=== PATIENT | male | born 1955 | race Caucasian/White ===

== ENCOUNTER 2023-04-21 10:33 | Emergency (ER) | payer MEDICARE, OTHER ==
[2023-04-21] VITALS (16 sets, daily range): BP systolic 114–151; BP diastolic 70–86
[~2023-04-21] VITALS: Ht 167.6 cm; Wt 66.0 kg
[2023-04-21 11:21] LABS: BASO% 0.2 % (0-3); HEMATOCRIT 38.4 % (39.0-50.0); HEMOGLOBIN 13.7 g/dl (14.0-18.0); IMMATURE GRANULOCYTES 0.3 % (0.0-5.0); LYMPH% 8.1 % (15-41); MEAN CELL VOLUME 83.7 fL CALC (80.0-100.0); MEAN CORPUSCULAR HGB 29.8 pG CALC (26.0-32.0); MEAN CORPUSCULAR HGB CONC 35.7 g/dL CAL (32.0-36.0); MONO% 5.2 % (2-13); NEUT# 9.92 thou/uL (1.82-7.42); NEUT% 86.2 % (42-76); RED BLOOD COUNT 4.59 mill/uL (4.70-6.10); RED CELL DISTRI WIDTH 11.5 % (11.5-15.5)
[2023-04-21 11:42] LABS: ALBUMIN 4.1 g/dL (3.2-5.0); ALKALINE PHOSPHATASE 62 u/l (38-126); ANION GAP 25 (6-22 (CALC)); BILIRUBIN, TOTAL 0.7 mg/dL (0.2-1.3); CARBON DIOXIDE 10 mmol/l (22-30); CHLORIDE 108 mmol/l (95-108); SGOT/AST 38 u/l (19-48); SODIUM 137 mmol/l (137-146)
[2023-04-21 11:45] LABS: BUN 113 mg/dL (8-23); BUN/CREATININE RATIO 9 (12-20 (CALC)); CREATININE 12.8 mg/dL (0.7-1.3); GFR FOR AFR.AMER. 5 ML/MIN (>=60 (CALC)); GFR OTHER RACES 4 ML/MIN (>=60 (CALC)); POTASSIUM 5.7 mmol/l (3.5-5.1)
[2023-04-21 13:26] LABS: BILIRUBIN, TOTAL 0.6 mg/dL (0.2-1.3); TOTAL PROTEIN 6.7 g/dL (6.3-8.2)
[2023-04-21 13:37] LABS: CREATININE 12.3 mg/dL (0.7-1.3); POTASSIUM 6.3 mmol/l (3.5-5.1)
[2023-04-21 15:19] LABS: URINE BILIRUBIN - DIPSTICK Negative (NEGATIVE); URINE BLOOD DIPSTICK Small (NEGATIVE); URINE COLOR Yellow; URINE GLUCOSE - DIPSTICK Negative (NEGATIVE); URINE KETONE Negative (NEGATIVE); URINE LEUK ESTERASE Negative (NEGATIVE); URINE NITRITE - DIPSTICK Negative (Negative); URINE PROTEIN - DIPSTICK 30 mg/dL (NEG-TRACE); URINE SPECIFIC GRAVITY 1.025; URINE UROBILINOGEN - DIPSTICK 0.2 E.U./dL (0.2)
[2023-04-21 15:25] LABS: URINE CASTS FEW lpf (NONE-RARE); URINE RBC 0-2 RBC/hpf (0-5); URINE SQUAMOUS EPITHELIAL CELL FEW EPI/hpf (0-FEW)
== END 2023-04-21 15:30 | disposition short-term general hospital (02) ==
LOC: ED 10:33
PROVIDERS: Family Medicine
DX: N17.9 Acute kidney failure, unspecified (principal); E87.5 Hyperkalemia; E11.9 Type 2 diabetes mellitus without complications; I10 Essential (primary) hypertension; I25.2 Old myocardial infarction; Z95.5 Presence of coronary angioplasty implant and graft; Z79.85 Long-term (current) use of injectable non-insulin antidiabetic drugs; Z79.84 Long term (current) use of oral hypoglycemic drugs; Z20.822 Contact with and (suspected) exposure to COVID-19